=== PATIENT | female | born 1980 | race Caucasian/White ===

== ENCOUNTER 2016-09-06 09:03 | Inpatient (IN) | payer OTHER ==
[2016-09-05 15:19] VITALS: BMI 25.9
[2016-09-06] VITALS (40 sets, daily range): BP systolic 85–131; BP diastolic 44–72; PULSE 64–102; RESP 9–25; Ht 162.6 cm; Wt 67.3 kg
[~2016-09-06] VITALS: Ht 162.6 cm; Wt 67.3 kg
[2016-09-06] MEDS: D5-NS + KCL 20 MEQ 1,000 ML IV SCH ×3 (06:00→21:09)
[~2016-09-06 09:03] MED LIST: CEFAZOLIN 2 GM/50 ML (PMX) 50 ML IVPB SCH; Metronidazole 500 MG in NS 100 ML IVPB SCH
[2016-09-06] MEDS ORDERED: GELATIN SIZE 100 SPONGE ONE (10:08)
[2016-09-06] MEDS ORDERED: METHYLENE BLUE 1% 10 ML INJ ONE (10:08)
[2016-09-06] MEDS ORDERED: THROMBIN 5000 UNIT VIAL ONE (10:08)
[2016-09-06] MEDS ORDERED: VASOPRESSIN 20 UNITS INJ ONE (10:08)
[2016-09-06] MEDS ORDERED: GLYCOPYRROLATE 0.4 MG INJ ONE (11:04)
[2016-09-06] MEDS ORDERED: NEOSTIGMINE 3 MG/3 ML SYRINGE ONE (11:04)
[2016-09-06] MEDS ORDERED: SUCCINYLCHOLINE CHLORIDE 100 MG/5 ML SYG IV ONE (11:04)
[2016-09-06] MEDS ORDERED: ROCURONIUM 50 MG INJ ONE ×2 (11:04→12:45)
[2016-09-06] MEDS ORDERED: PROPOFOL 20 ML ONE (11:04)
[2016-09-06] MEDS ORDERED: LIDOCAINE 2% (SDV) 5 ML INJ ONE (11:04)
[2016-09-06] MEDS ORDERED: metroNIDAZOLE 500 MG/NS (PMX) 100 ML IVPB ONE (11:06)
[2016-09-06] MEDS ORDERED: CEFAZOLIN 1 GM INJ ONE (11:06)
[2016-09-06] MEDS ORDERED: morphine SULFATE/PF (10 MG/10 ML) INJ ONE (11:08)
[2016-09-06] MEDS ORDERED: METOCLOPRAMIDE 10 MG INJ ONE (11:08)
[2016-09-06] MEDS ORDERED: ONDANSETRON 4 MG INJ ONE (11:08)
[2016-09-06] MEDS ORDERED: KETOROLAC 30 MG INJ IV ONE (14:30)
[2016-09-06] MEDS ORDERED: MIDAZOLAM 1 MG/ML 2 ML INJ IV PRN (14:30)
[2016-09-06] MEDS ORDERED: ONDANSETRON 4 MG INJ IV PRN ×4 (14:30→21:00)
[2016-09-06] MEDS ORDERED: METOCLOPRAMIDE 10 MG INJ IV PRN (14:30)
[2016-09-06] MEDS ORDERED: FENTAnyl 50 MCG/ML VIAL IV PRN ×2 (14:30)
[2016-09-06] MEDS ORDERED: DIPHENHYDRAMINE 50 MG INJ IV PRN (14:30)
[2016-09-06] MEDS ORDERED: FENTAnyl 50 MCG/ML VIAL ONE (15:30)
[2016-09-06] MEDS ORDERED: EPHEDrine SULFATE 50 MG/5 ML SYG IV PRN (15:30)
[2016-09-06] MEDS ORDERED: morphine SULFATE/PF (10 MG/10 ML) INJ SPINAL ONE (15:30)
--- NOTE | 2016-09-06 15:36 | HPN ---
Date/Time of Note Date/Time of Note DATE: 09/06/16 TIME: 15:35 Interval H&P Admission Note Pt. seen H&P reviewed: No system changes MERLYN SANCHEZ MD September 06, 2016 15:36
[2016-09-06] MEDS ORDERED: CEFAZOLIN 1 GM in SOD CHLORIDE 0.9% 100 ML IVPB SCH (16:00)
[2016-09-06] MEDS: MEPERIDINE 50 MG INJ IV PRN ×2 (16:27→23:50)
[2016-09-06] MEDS: CEFAZOLIN 1 GM/50 ML (PMX) 50 ML IVPB SCH ×2 (16:30→23:45)
[2016-09-06] MEDS: POTASSIUM CHLORIDE 20 MEQ in LACTATED RINGER'S 990 ML IV SCH ×2 (16:30→21:55)
--- NOTE | 2016-09-06 18:41 | HP ---
DATE OF ADMISSION: 09/06/2016 HISTORY OF PRESENT ILLNESS: The patient is a 36-year-old female patient who was evaluated for intra -abdominal pelvic swelling and pelvic ____ pain that gets worse during period. Patient's CT of the abdomen and pelvis without contrast revealed anteverted uterus which enhanced heterogeneously. The anterior aspect of the uterus appears stuck to the anterior abdominal wall. Findings suggestive of. bicornuate uterus which is suboptimally evaluated by CT. The patient with history of and right oophorectomy in 2014 which according to the patient, was benign. The patient was evaluated b karly Melendez in surgical consultation and patient was brought to the hospital and underwent laparo scopic supracervical hysterectomy. Postoperatively, patient experienced significant nausea and pain and patient will be admitted for further evaluation and management. PAST MEDICAL HISTORY: As stated in H and P. The patient denies having any chronic conditions. PAST SURGICAL HISTORY: x2, status post right oophorectomy in March 2015. FAMILY HISTORY: Positive for colon cancer in patient's mother diagnosed at a young age. SOCIAL HISTORY: Patient lives at home with her family. The patient denies any alcohol use. Denies any tobacco use, denies any illicit drug use. ALLERGIES: PATIENT IS ALLERGIC TO ____, MORPHINE AND OXYCODONE. HOME MEDICATIONS: The patient denies having any routine medications at home. REVIEW OF SYSTEMS: A 12-point review of systems is negative unless was mentioned in the HPI. PHYSICAL ASSESSMENT GENERAL: Well-developed, well-nourished female, currently is awake, alert. VITAL SIGNS: Temperature is 97.6, pulse is 78, blood pressure is 96/49, respiratory rate 11, oxygen saturation is 92% on 2 liters nasal cannula. HEENT: Head is atraumatic, normocephalic. Pupils equal, round, reactive to light and accommodation . Oral mucosa is pink and moist. NECK: Supple, no cervical lymphadenopathy, no thyromegaly. CHEST: Lungs clear bilaterally. There is no rhonchi, wheezes, rales noted. CARDIOVASCULAR: Normal S1, S2. No murmurs, gallops, clicks, rubs noted. ABDOMEN: Round, soft, status post surgery with laparoscopic incisions intact with kandi. The ___ _ intact, covered with bandages. EXTREMITIES: There is no edema, clubbing, cyanosis. Pulses equal bilaterally 2+. SKIN: There is no rash, petechiae noted. NEUROLOGIC: Patient is awake, alert and oriented x3, no focal deficits noted. Motor strength 5/5 i n all extremities. ASSESSMENT AND PLAN: Pelvic mass, status post laparoscopic supracervical hysterectomy. We are goi ng to admit patient to continue postoperative antibiotics and IV fluids. Continue Toradol p.r.n. fo r pain and Zofran p.r.n. for nausea. Continue sequential compression device for deep venous thrombo sis prophylaxis and Pepcid for peptic ulcer disease prophylaxis. Continue to follow up surgical rec ommendation, incentive spirometer q. 1 hour while patient is awake, CBC and BMP tomorrow. Further r ecommendations based on clinical course. Plan of care discussed with Dr. Love. Dictated By: TERE VENTURA JUMP ROLL OPERATOR for KALLIE LOVE MD SR/NTS Conf#: [id number] DID#: [id number]
[2016-09-06] MEDS: FAMOTIDINE 20 MG INJ IV SCH (21:06)
[2016-09-07 05:48] LABS: ADD SCAN DIFF NO
[2016-09-07] MEDS: KETOROLAC 30 MG INJ IV PRN ×2 (05:49→17:10)
[2016-09-07 05:53] LABS: HEMATOCRIT 25.2 % (37.0-47.0); HEMOGLOBIN 8.1 g/dl (12.0-16.0); LYMPHOCYTES # 1.4 10^3/ul (0.8-2.9); MEAN CORPUSCULAR HGB CONC 32.1 g/dl (32.0-37.0); MEAN CORPUSCULAR VOLUME 93.3 fl (82.0-101.0); MEAN PLATELET VOLUME 12.2 fl (7.4-10.4); MONOCYTE # 0.8 10^3/ul (0.3-0.9); MONOCYTES % 9.4 % (0.0-11.0); NEUTROPHIL # 6.5 10^3/ul (1.6-7.5); NEUTROPHILS % 74.4 % (39.0-77.0); PLATELET COUNT 420 10^3/UL (140-415); RED CELL DISTRIBUTION WIDTH 13.4 % (11.5-14.5); WHITE BLOOD COUNT 8.8 10^3/ul (4.8-10.8)
[2016-09-07 06:19] LABS: INR 1.03; PROTIME 13.5 Sec (12.2-14.2); PT RATIO 1.1
[2016-09-07 06:26] LABS: ALBUMIN 2.7 g/dl (3.3-4.9)
[2016-09-07 06:27] LABS: POTASSIUM 3.8 mmol/L (3.5-5.1)
[2016-09-07 06:28] LABS: CREATININE 0.54 mg/dl (0.44-1.00)
[2016-09-07 06:29] LABS: ALBUMIN/GLOBULIN RATIO 0.87; BILIRUBIN,INDIRECT 0.7 mg/dl (0-1.1); BILIRUBIN,TOTAL 0.7 mg/dl (0.2-1.3); CALCIUM 7.8 mg/dl (8.4-10.2); TOTAL PROTEIN 5.8 g/dl (6.1-8.1)
[2016-09-07 06:30] LABS: MAGNESIUM 1.8 mg/dl (1.7-2.5)
[2016-09-07 07:57] VITALS: BP 94/51; RESP 20
[2016-09-07] MEDS: FAMOTIDINE 20 MG INJ IV SCH ×2 (08:23→20:40)
[2016-09-07] MEDS: CEFAZOLIN 1 GM/50 ML (PMX) 50 ML IVPB SCH (08:24)
[2016-09-07] MEDS: POTASSIUM CHLORIDE 20 MEQ in LACTATED RINGER'S 990 ML IV SCH ×2 (10:19→22:19)
[2016-09-07] MEDS: MEPERIDINE 50 MG INJ IV PRN ×2 (10:48→22:13)
--- NOTE | 2016-09-07 13:19 | PN ---
Date/Time of Note Date/Time of Note DATE: 09/07/16 TIME: 13:12 Assessment/Plan VTE Prophylaxis VTE Prophylaxis Intervention: SCD's Lines/Catheters IV Catheter Type (from Nrsg): Peripheral IV Assessment/Plan Chief Complaint/Hosp Course Fibroids, pelvic pain Problems: Assessment/Plan A- doing well but inadequate bowel fct to d/c and concern about bladder due to dissection P- transfuse due to need for O2 delivery to tissue and mobilize. Subjective 24 Hr Interval Summary Free Text/Dictation Less pain than preop RLQ but significant discomfort, no flatus and not OOB yet. Exam/Review of Systems Vital Signs Vitals Vital Signs Date Time Temp Pulse Resp B/P Pulse Ox O2 Delivery O2 Flow Rate FiO2 09/07/16 07:57 98.7 93 20 94/51 98 09/06/16 22:02 Nasal Cannula 2.0 Intake and Output 09/06/16 09/06/16 09/07/16 15:00 23:00 07:00 Intake Total 2980 ml 850 ml Output Total 800 ml 1200 ml Balance 2180 ml -350 ml Exam Respiratory: clear to auscultation, normal air movement Cardiovascular: nl pulses, regular rate and rhythm Gastrointestinal: non-tender, soft Extremities: normal pulses Results Result Diagram: 09/07/16 0501 09/07/16 0501 Results 24 hrs Laboratory Tests Test 09/07/16 05:01 White Blood Count 8.8 Red Blood Count 2.70 L Hemoglobin 8.1 L Hematocrit 25.2 L Mean Corpuscular Volume 93.3 Mean Corpuscular Hemoglobin 30.0 Mean Corpuscular Hemoglobin Concent 32.1 Red Cell Distribution Width 13.4 Platelet Count 420 H Mean Platelet Volume 12.2 H Neutrophils % 74.4 Lymphocytes % 16.0 Monocytes % 9.4 Eosinophils % 0.0 Basophils % 0.0 Nucleated Red Blood Cells % 0.0 Neutrophils # 6.5 Lymphocytes # 1.4 Monocytes # 0.8 Eosinophils # 0.0 Basophils # 0.0 Nucleated Red Blood Cells # 0.0 Prothrombin Time 13.5 Prothrombin Time Ratio 1.1 INR International Normalized Ratio 1.03 Sodium Level 137 Potassium Level 3.8 Chloride Level 106 Carbon Dioxide Level 24 Anion Gap 11 Blood Urea Nitrogen 5 L Creatinine 0.54 Glucose Level 93 Calcium Level 7.8 L Magnesium Level 1.8 Total Bilirubin 0.7 Direct Bilirubin 0.00 Indirect Bilirubin 0.7 Aspartate Amino Transf (AST/SGOT) 22 Alanine Aminotransferase (ALT/SGPT) 21 Alkaline Phosphatase 47 Total Protein 5.8 L Albumin 2.7 L Globulin 3.10 Albumin/Globulin Ratio 0.87 Medications Medications Current Medications Meperidine HCl (Demerol) 25 mg Q4H PRN IV PAIN LEVEL 1-5; Start 09/06/16 at 15: 00 Meperidine HCl (Demerol) 50 mg Q4H PRN IV PAIN LEVEL 6-10 Last administered on 09/07/16 10:48; Admin Dose 50 MG; Start 09/06/16 at 15:00 Ketorolac Tromethamine (Toradol) 30 mg Q6H PRN IV PAIN Last administered on 05:49; Admin Dose 30 MG; Start 09/06/16 at 16:00; Stop 09/09/16 at 15:59 Famotidine 20 mg 20 mg Q12 IV Last administered on 09/07/16 08:23; Admin Dose 20 MG; Start 09/06/16 at 21:00 Potassium Chloride/Lactated Ringer's (KCl/Lr) 1,000 ml @ 100 mls/hr Q10H IV Last administered on 09/07/16 10:19; Admin Dose 100 MLS/HR; Start 09/06/16 at 16 :30 Ondansetron HCl (Zofran Inj) 4 mg Q4H PRN IV NAUSEA AND/OR VOMITING Last administered on 09/06/16 23:40; Admin Dose 4 MG; Start 09/06/16 at 21:00 MERLYN SANCHEZ MD September 07, 2016 13:19
--- NOTE | 2016-09-07 13:38 | PN ---
Date/Time of Note Date/Time of Note DATE: 09/07/16 TIME: 13:33 Assessment/Plan VTE Prophylaxis VTE Prophylaxis Intervention: SCD's Lines/Catheters IV Catheter Type (from Nrsg): Peripheral IV Assessment/Plan Chief Complaint/Hosp Course ASSESSMENT AND PLAN: -Pelvic mass, pelvic pain, status post laparoscopic supracervical hysterectomy. Continue Toradol p.r.n. for pain and Zofran p.r.n. for nausea. Continue sequential compression device for deep venous thrombosis prophylaxis and Pepcid for peptic ulcer disease prophylaxis. Continue to follow up surgical recommendation, incentive spirometer q. 1 hour while patient is awake. OOB. -Anemia of blood loss, pending blood transfusion, continue to monitor H&H. Further recommendations based on clinical course. Plan of care discussed with Dr. Love. Problems: Subjective 24 Hr Interval Summary Free Text/Dictation Patient was able to get out of bed and ambulate today, still complains of abdominal pain when was sitting in a chair currently is back to bed, stated that pain is well controlled on current regimen, hypoactive bowel sounds, negative flatus, good urine output via Vasquez. Exam/Review of Systems Vital Signs Vitals Vital Signs Date Time Temp Pulse Resp B/P Pulse Ox O2 Delivery O2 Flow Rate FiO2 09/07/16 07:57 98.7 93 20 94/51 98 09/06/16 22:02 Nasal Cannula 2.0 Intake and Output 09/06/16 09/06/16 09/07/16 14:59 22:59 06:59 Intake Total 2980 ml 850 ml Output Total 800 ml 1200 ml Balance 2180 ml -350 ml Exam GENERAL: Well-developed, well-nourished female, currently is awake, alert. HEENT: Head is atraumatic, normocephalic. PERRLA. NECK: Supple, no cervical lymphadenopathy, no thyromegaly. CHEST: Lungs clear bilaterally. There is no rhonchi, wheezes, rales noted. CARDIOVASCULAR: Normal S1, S2. No murmurs, gallops, clicks, rubs noted. ABDOMEN: Round, soft, status post surgery with laparoscopic incisions intact. EXTREMITIES: There is no edema, clubbing, cyanosis. Pulses equal bilaterally 2 +. SKIN: There is no rash, petechiae noted. NEUROLOGIC: Patient is awake, alert and oriented x3, no focal deficits noted. Results Result Diagram: 09/07/16 0501 09/07/16 0501 Results 24 hrs Laboratory Tests Test 09/07/16 05:01 White Blood Count 8.8 Red Blood Count 2.70 L Hemoglobin 8.1 L Hematocrit 25.2 L Mean Corpuscular Volume 93.3 Mean Corpuscular Hemoglobin 30.0 Mean Corpuscular Hemoglobin Concent 32.1 Red Cell Distribution Width 13.4 Platelet Count 420 H Mean Platelet Volume 12.2 H Neutrophils % 74.4 Lymphocytes % 16.0 Monocytes % 9.4 Eosinophils % 0.0 Basophils % 0.0 Nucleated Red Blood Cells % 0.0 Neutrophils # 6.5 Lymphocytes # 1.4 Monocytes # 0.8 Eosinophils # 0.0 Basophils # 0.0 Nucleated Red Blood Cells # 0.0 Prothrombin Time 13.5 Prothrombin Time Ratio 1.1 INR International Normalized Ratio 1.03 Sodium Level 137 Potassium Level 3.8 Chloride Level 106 Carbon Dioxide Level 24 Anion Gap 11 Blood Urea Nitrogen 5 L Creatinine 0.54 Glucose Level 93 Calcium Level 7.8 L Magnesium Level 1.8 Total Bilirubin 0.7 Direct Bilirubin 0.00 Indirect Bilirubin 0.7 Aspartate Amino Transf (AST/SGOT) 22 Alanine Aminotransferase (ALT/SGPT) 21 Alkaline Phosphatase 47 Total Protein 5.8 L Albumin 2.7 L Globulin 3.10 Albumin/Globulin Ratio 0.87 Medications Medications Current Medications Meperidine HCl (Demerol) 25 mg Q4H PRN IV PAIN LEVEL 1-5; Start 09/06/16 at 15: 00 Meperidine HCl (Demerol) 50 mg Q4H PRN IV PAIN LEVEL 6-10 Last administered on 09/07/16 10:48; Admin Dose 50 MG; Start 09/06/16 at 15:00 Ketorolac Tromethamine (Toradol) 30 mg Q6H PRN IV PAIN Last administered on 05:49; Admin Dose 30 MG; Start 09/06/16 at 16:00; Stop 09/09/16 at 15:59 Famotidine 20 mg 20 mg Q12 IV Last administered on 09/07/16 08:23; Admin Dose 20 MG; Start 09/06/16 at 21:00 Potassium Chloride/Lactated Ringer's (KCl/Lr) 1,000 ml @ 70 mls/hr [id number] IV Last administered on 09/07/16 10:19; Admin Dose 100 MLS/HR; Start 09/06/16 at 16 :30 Ondansetron HCl (Zofran Inj) 4 mg Q4H PRN IV NAUSEA AND/OR VOMITING Last administered on 09/06/16 23:40; Admin Dose 4 MG; Start 09/06/16 at 21:00 TERE VENTURA September 07, 2016 13:38
[2016-09-07 16:39] LABS: ADD SCAN DIFF NO
[2016-09-07 16:40] LABS: BASOPHILS % 0.2 % (0.0-2.0); EOSINOPHILS # 0.1 10^3/ul (0.0-0.5); EOSINOPHILS % 0.8 % (0.0-7.0); HEMATOCRIT 29.1 % (37.0-47.0); HEMOGLOBIN 9.6 g/dl (12.0-16.0); LYMPHOCYTES # 2.4 10^3/ul (0.8-2.9); LYMPHOCYTES % 28.7 % (15.0-51.0); MEAN CORPUSCULAR HEMOGLOBIN 30.6 pg (29.0-33.0); MEAN CORPUSCULAR VOLUME 92.7 fl (82.0-101.0); MEAN PLATELET VOLUME 11.4 fl (7.4-10.4); MONOCYTE # 0.8 10^3/ul (0.3-0.9); MONOCYTES % 9.1 % (0.0-11.0); NEUTROPHIL # 5.1 10^3/ul (1.6-7.5); PLATELET COUNT 184 10^3/UL (140-415); RED BLOOD COUNT 3.14 10^6/ul (4.20-5.40); RED CELL DISTRIBUTION WIDTH 13.4 % (11.5-14.5); WHITE BLOOD COUNT 8.4 10^3/ul (4.8-10.8)
[2016-09-07 19:35] VITALS: BP 108/56; RESP 18
[2016-09-08] MEDS: KETOROLAC 30 MG INJ IV PRN (01:42)
[2016-09-08 05:32] LABS: ADD SCAN DIFF NO
[2016-09-08 05:40] LABS: BASOPHILS % 0.1 % (0.0-2.0); EOSINOPHILS # 0.1 10^3/ul (0.0-0.5); EOSINOPHILS % 1.6 % (0.0-7.0); HEMATOCRIT 28.4 % (37.0-47.0); HEMOGLOBIN 9.3 g/dl (12.0-16.0); LYMPHOCYTES # 2.3 10^3/ul (0.8-2.9); LYMPHOCYTES % 33.1 % (15.0-51.0); MEAN CORPUSCULAR HEMOGLOBIN 30.8 pg (29.0-33.0); MEAN CORPUSCULAR HGB CONC 32.7 g/dl (32.0-37.0); MEAN PLATELET VOLUME 11.6 fl (7.4-10.4); MONOCYTE # 0.7 10^3/ul (0.3-0.9); MONOCYTES % 9.7 % (0.0-11.0); NEUTROPHIL # 3.9 10^3/ul (1.6-7.5); NEUTROPHILS % 55.2 % (39.0-77.0); PLATELET COUNT 173 10^3/UL (140-415); RED BLOOD COUNT 3.02 10^6/ul (4.20-5.40); RED CELL DISTRIBUTION WIDTH 13.5 % (11.5-14.5)
[2016-09-08 06:45] LABS: ALBUMIN 2.8 g/dl (3.3-4.9); ALBUMIN/GLOBULIN RATIO 0.93; BILIRUBIN,INDIRECT 0.6 mg/dl (0-1.1); BILIRUBIN,TOTAL 0.6 mg/dl (0.2-1.3); CALCIUM 7.5 mg/dl (8.4-10.2); CREATININE 0.61 mg/dl (0.44-1.00); TOTAL PROTEIN 5.8 g/dl (6.1-8.1)
[2016-09-08 07:20] VITALS: BP 104/61; PULSE 82; RESP 18
[2016-09-08] MEDS: FAMOTIDINE 20 MG INJ IV SCH ×2 (08:44→20:46)
[2016-09-08] MEDS: MEPERIDINE 25 MG INJ IV PRN ×3 (10:18→22:36)
--- NOTE | 2016-09-08 12:41 | PN ---
Date/Time of Note Date/Time of Note DATE: 09/08/16 TIME: 12:37 Assessment/Plan VTE Prophylaxis VTE Prophylaxis Intervention: SCD's Lines/Catheters IV Catheter Type (from Nrs): Peripheral IV Urinary Cath still in place: No Assessment/Plan Chief Complaint/Hosp Course Fibroids, pelvic pain Problems: Assessment/Plan A- clinically improved, héctor diet an wound clean. P- d/c after héctor lunch Subjective 24 Hr Interval Summary Free Text/Dictation Feels better than earlier and yesterday. + flatus and tolerating diet and ambulating Exam/Review of Systems Vital Signs Vitals Vital Signs Date Time Temp Pulse Resp B/P Pulse Ox O2 Delivery O2 Flow Rate FiO2 09/08/16 07:20 98.2 82 18 104/61 97 Room Air 09/06/16 22:02 2.0 Intake and Output 09/07/16 09/07/16 09/08/16 15:00 23:00 07:00 Intake Total 700 ml 1960 ml 740 ml Output Total 2450 ml 1820 ml Balance 700 ml -490 ml -1080 ml Exam Respiratory: normal air movement Cardiovascular: nl pulses, regular rate and rhythm Musculoskeletal: nl extremities to inspection Extremities: normal pulses Results Result Diagram: 09/08/16 0515 09/08/16 0515 Results 24 hrs Laboratory Tests Test 09/07/16 16:35 09/08/16 05:15 White Blood Count 8.4 7.0 Red Blood Count 3.14 L 3.02 L Hemoglobin 9.6 L 9.3 L Hematocrit 29.1 L 28.4 L Mean Corpuscular Volume 92.7 94.0 Mean Corpuscular Hemoglobin 30.6 30.8 Mean Corpuscular Hemoglobin Concent 33.0 32.7 Red Cell Distribution Width 13.4 13.5 Platelet Count 184 # 173 Mean Platelet Volume 11.4 H 11.6 H Neutrophils % 61.0 55.2 Lymphocytes % 28.7 33.1 Monocytes % 9.1 9.7 Eosinophils % 0.8 1.6 Basophils % 0.2 0.1 Nucleated Red Blood Cells % 0.0 0.0 Neutrophils # 5.1 3.9 Lymphocytes # 2.4 2.3 Monocytes # 0.8 0.7 Eosinophils # 0.1 0.1 Basophils # 0.0 0.0 Nucleated Red Blood Cells # 0.0 0.0 Sodium Level 136 Potassium Level 4.0 Chloride Level 109 Carbon Dioxide Level 24 Anion Gap 7 L Blood Urea Nitrogen 5 L Creatinine 0.61 Glucose Level 87 Calcium Level 7.5 L Total Bilirubin 0.6 Direct Bilirubin 0.00 Indirect Bilirubin 0.6 Aspartate Amino Transf (AST/SGOT) 24 Alanine Aminotransferase (ALT/SGPT) 24 Alkaline Phosphatase 48 Total Protein 5.8 L Albumin 2.8 L Globulin 3.00 Albumin/Globulin Ratio 0.93 Medications Medications Current Medications Meperidine HCl (Demerol) 25 mg Q4H PRN IV PAIN LEVEL 1-5 Last administered on 10:18; Admin Dose 25 MG; Start 09/06/16 at 15:00 Famotidine 20 mg 20 mg Q12 IV Last administered on 09/08/16 08:44; Admin Dose 20 MG; Start 09/06/16 at 21:00 Potassium Chloride/Lactated Ringer's (KCl/Lr) 1,000 ml @ 40 mls/hr Q24H IV Last administered on 09/07/16 22:19; Admin Dose 70 MLS/HR; Start 09/06/16 at 16: 30 Ondansetron HCl (Zofran Inj) 4 mg Q4H PRN IV NAUSEA AND/OR VOMITING Last administered on 09/06/16 23:40; Admin Dose 4 MG; Start 09/06/16 at 21:00 MERLYN SANCHEZ MD September 08, 2016 12:40
[2016-09-08] MEDS: POTASSIUM CHLORIDE 20 MEQ in LACTATED RINGER'S 990 ML IV SCH ×2 (14:09→22:59)
[2016-09-08] MEDS: DOCUSATE SODIUM 100 MG CAP PO SCH ×2 (14:45→20:46)
[2016-09-08 20:09] VITALS: BP 108/56; RESP 18
--- NOTE | 2016-09-08 20:11 | OPR ---
Date/Time of Note Date/Time of Note DATE: 09/08/16 TIME: 20:11 Operative Report Free Text/Dictation OPERATIVE REPORT [facility] Name: Jocelynn Montano Medical Date: 09/06/16 Preoperative Diagnosis: 1- Pelvic mass probable fibroids 2- Possible mesentery / pericolic mass per CT 3- Severe chronic pelvic pain Postoperative Diagnosis: 1- Left broad ligament myoma 2- Ureteral stricture 3- Dense anterior abdominal adhesions Procedures: 1- Laparoscopic subtotal hysterectomy 2- Bilateral ureteral dissection with repositioning 3- Retroperitoneal uterine artery ligation 4- Partial presacral neurectomy 5- Extensive lysis of adhesions Surgeon: Dr. Sanchez Rubber Tester: SOLITARIO Zhu Anesthesia: General with regional Indications for surgery The patient is a 36-year old s/p laparoscopic RSO for a large benign mass with chronic pain as well as a suggestive of pericolic cysts per CT scan. The markers were within normal limits, and most pain was right sided despite the RSO. She also had severe dysmenorrha and menorrhagia. After considering all options with risks and benefits a Name: Jocelynn Montano Medical laparoscopy with supracervical hysterectomy and possible USO, possible ureteral dissection as needed with repositioning and possible presacral neurctomy was selected after considering all options with risks and benefits. Findings and Summary The patient was laparoscoped and found to have a large broad ligament fibroid on the left that was partly obstructing the ureter and due to the size distorting the anatomy retroperitoneally on the right as well with right sidewall adhesions from prior surgery and the uterus densely adherent to the anterior abdomen and possibly bladder. Therefore it was necessary to open the retroperitoneum bilaterally and dissect and reposition the ureters bilaterally for the purposes of access to the lower uterine segment and the vasculature. Due to additional anatomic distortion by the fibroid and hypervascualrity as well the uterine arteries were clipped bilaterally immediately distal to the branching of the hypogastrics, as anatomy precluding access to the lower uterine segment vessels mandated this. Due to scar tissue and right side pain a presacral neurectomy was completed on the right. The laparoscopic supracervical hysterectomy was then completed with morcellation thru a minilaparotomy without incident. Procedure: After being prepped and draped in the usual manner an EEA sizer and pneumo- occluder was inserted vaginally. A 5-millimeter trocar was then placed well cephlad to the umbilicus without incident after which a 5-millimeter trocar was placed periumbilically without incident. Subsequently, we insufflated and placed two 5 millimeter trocars laterally and a 12 millimeter trocar suprapubically. At this time the uterus was noted to be enlarged with fibroids an densely adherent to the anterior abdomen and possibly bladder, with some anterior adhesions being lysed with sharp dissection and the Omni as well as Thunderbeat. Subsequently we explored and noted the left adnexia to be grossly within normal limits in appearance but there was a large solid mass is consistent with a left broad ligament myoma involving the retroperitoneum Name: Jocelynn Montano [facility] that was that was partly obstructing the left ureter and due to the size distorting the anatomy retroperitoneally on the right as well, with additional fibroids and the uterus further densely adherent to the anterior abdomen and the right sidewall scarred and lower uterine segment anatomy precluding access to the lower uterine segment vessels. Initially the left round ligament was transected with the Gyrus biopolar Cutting Forceps and the retroperitoneal spaced opened parallel to the IP ligament and laterally with the same devise and Omni. The ureter was identified and because of the large retroperitoneal mass/myoma required a specific dissection and repositioning. The ureter was bluntly dissected away from the broad ligament myoma and others with an Omni, and carefully repositioned lateral to the broad ligament and the myoma. Because of some oozing and because the anatomy of the retroperitoneal mass resulted in displacement of the vessels laterally and the anatomy precluding access to the lower uterine segment vessels it mandated that we isolate the uterine artery and vein adjacent to the ureter that was lateralized to the level of the hypogastric artery using the endo-dissector and Omni for hemostasis with the previously dissected ureter visualized. Therefore in this case the uterine artery was hemoclipped immediately distal to the branching of the hypogastric and at the bifurcation of the hypogastric, proximal to the branching of the uterine and obliterated umbilical; salvaging both observed superior and inferior vesicle while controlling the entire uterine with associated collateral branches. At this time the left triple pedicle was desiccated and transected with the Thunderbeat. Subsequently, the right round ligament was transected with a Gyrus bipolar cutting forceps laterally and the retroperitoneum opened parallel to the remnant of infundibulo-pelvic (IP) ligament with a Gyrus bipolar cutting forceps and Omni. The ureteral dissection with repositioning was undertaken. The ureter was dissected away from the peritoneum with adjacent uterus and repositioned with care using the endo-dissector and Gyrus bipolar cutting forceps bluntly, again with the dissection being somewhat required due to some distortion of the retroperitoneum by the large aforementioned mass from the contralateral side and scar tissue . This process was carried out throughout the ureteral length in the pelvis and it peristalsed normally once Name: Jocelynn Montano Medical repositioned. Again, because of fibroids and scar tissue with anatomy precluding access to the lower uterine segment vessels, it mandated that we isolate the uterine artery and vein adjacent to the ureter that was lateralized to the level of the hypogastric artery using the endo-dissector and Omni for hemostasis with the previously dissected ureter visualized. Therefore in this case the uterine artery was hemoclipped immediately distal to the branching of the hypogastric and at the bifurcation of the hypogastric, proximal to the branching of the uterine and obliterated umbilical; salvaging both observed superior and inferior vesicle while controlling the entire uterine with associated collateral branches. At this time the remnant of right triple pedicle / IP ligament was desiccated and transected with the Omni and Thunderbeat. At this time a corkscrew was placed in the aforementioned uterine fibroids to manipulate further dissect the uterus from the anterior abdomen and bladder with the Omni and sharp dissection and the integ the uterus allowing development or the bladder flap uneventfully with the Gyrus Cutting Forceps and blunt dissection and the integrity of the bladder was confirmed by instillation of methylene blue. Subsequently with exposure the right ureter was further dissected and mobilized, the sigmoid colon and mesentery mobilized laterally and with the vasculature visualized a presacral space was developed with blunt dissection and the Omni and with the Thunderbeat a right sided presacral neurectomy was completed. The right uterine artery was transected with a Thunderbeat perpendicular to the distal lower uterine segment and the Cardinal ligament and utero-sacral ligament were both transected with a Thunderbeat parallel to the lower uterine segment and cervix via the contralateral trocar site. An identical series of steps were taken on the left side. Hence, the uterus was removed from the cervix with the Thunderbeat and hemostasis confirmed. The cervix and the endocervical canal were thoroughly ablated with the Omni. Then small left adnexal cyst was removed and was then and removed with a negative frozen section was obtained consistent with a functional cyst thru the 12-millimeter trocar, and the specimen was then removed with the uterus by pacing in a sac and using a minilaparotomy. The 12- millimeter trocar site was minimally extended to 3-4 cm midline to a minilaparotomy with sharp dissection Name: Jocelynn Montano Medical and an electrocautery and uterus in a 15-millimeter was then removed with morcellation using Kam clamps and a scalpel for morcellation, with all tissue accounted for. The incision was partly closed with interrupted 0- Vicryl suture , after which the 12-millimeter trocar was reinserted. After irrigating and assuring hemostasis the 12 millimeter trocar was removed and the fascia was closed with 0-vicryl using an endo-close devise and subcutaneous 3-0 Vicryl suture . The gas was removed and the skin of all sites then closed with 4-0 Monocryl suture. The EBL was 100 cc and the patient tolerated the procedure well and left the OR in good condition. Merlyn Sanchez M.D. MERLYN SANCHEZ MD September 08, 2016 20:11
--- NOTE | 2016-09-08 23:21 | PN ---
DATE: 09/08/2016 SUBJECTIVE: As per nurse, the patient during lunchtime had difficulty in tolerating diet, and the p atient had suboptimal p.o. intake. No reported chest pain or shortness of breath. No fever or chil ls. PHYSICAL EXAMINATION: GENERAL: The patient is conscious, awake, alert. VITAL SIGNS: Temperature 98.2, pulse 87, respirations 18, blood pressure 108/56, O2 saturation 99% on room air. HEENT: No eye discharge or redness. Oropharynx clear. NECK: No mass. CHEST: Fairly clear. CARDIOVASCULAR: S1, S2 normal. No murmur. ABDOMEN: Soft, nondistended. Bowel sounds plus. EXTREMITIES: No leg edema. NEUROLOGIC: The patient is awake, alert with no gross focal deficit. LABORATORY DATA: Done this morning, WBC 7, hemoglobin 9.3, platelets 173. Sodium 138, potassium 4, BUN 5, creatinine 0.7. Glucose 87. Liver enzymes normal. IMPRESSION: Left broad ligament myoma and ureteral stricture, status post laparoscopic subtotal gas trectomy and bilateral ureteral dissection with repositioning and extensive lysis of adhesions. The patient will be continued on mechanical soft diet, which was started this morning. We will monitor her until tomorrow and if the patient is able to tolerate diet well, she will be discharged home. We will continue IV Pepcid for now. Will continue IV fluids. SCDs for deep venous thrombosis proph ylaxis. PET results reviewed. No malignancy noted. Dictated By: KALLIE CASTRO/LATASHA Conf#: [id number] DID#: [id number]
[2016-09-09 07:24] VITALS: BP 99/55; PULSE 78; RESP 16
[2016-09-09] MEDS: FAMOTIDINE 20 MG INJ IV SCH (08:29)
[2016-09-09] MEDS: DOCUSATE SODIUM 100 MG CAP PO SCH (08:29)
[2016-09-09] MEDS: MEPERIDINE 25 MG INJ IV PRN (08:30)
[2016-09-09] MEDS ORDERED: HYDR-906 PO (13:32)
--- NOTE | 2016-09-11 23:29 | DS ---
DATE OF ADMISSION: 09/08/2016 DATE OF DISCHARGE: 09/09/2016 FINAL DIAGNOSES: 1. 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 2. Anemia of blood loss, status post transfusion. BRIEF HISTORY: The patient is a 36-year-old female with complaints of pelvic pain and pelvic swelli ng. The patient was evaluated by Dr. Melendez in surgical consultation. The patient was brought to the hospital and underwent laparoscopic subtotal hysterectomy. Postoperatively, the patient experi enced significant pain and was admitted for further evaluation and management. HOSPITAL COURSE: THE PATIENT HAS AN ALLERGY TO TYLENOL AND MORPHINE AND OXYCODONE; however, stated that she took Garrison before with no problem. The patient was given Toradol IV in the immediate posto perative period. The patient's condition gradually resolved. The patient's electrolytes and hemogl obin were closely monitored. The patient was discharged after clearance from surgery. The patient biopsy of the uterus was negative for any malignancy, atypia, or endometrial hyperplasia and biopsy of the left ovary was also negative for any malignancy or atypia. CONDITION ON DISCHARGE: Hemodynamically stable. ACTIVITIES: As patient tolerates. No lifting more than 25 pounds for 6 weeks. DIET: Regular diet. DISCHARGE MEDICATIONS: The patient is being prescription for Garrison p.r.n. for pain. DISCHARGE INSTRUCTIONS: The patient was instructed to follow up with Dr. Melendez in postoperative appointment in 1 week. Interdisciplinary plan of care was established for this patient. Plan of care was discussed with Dr Sully Arcos. Dictated By: [facility] for KALLIE ARCOS MD SR/NTS Conf#: [id number] DID#: [id number] CC: MERLYN MELENDEZ MD;*EndCC*
== END 2016-09-09 18:30 | disposition home or self-care (01) | DRG 743 ==
LOC: REC 09:03 → INTOOBSV 09:03 → MS2 20:00 → OBSVTOIN 09-08 14:13
PROC: 01B Peripheral Nervous System, Excision (ICD-10-PCS; principal; 2016-09-08)
PROC: 0UT94ZZ Resection of Uterus, Percutaneous Endoscopic Approach (ICD-10-PCS; 2016-09-08)
PROC: 0TS84ZZ Reposition Bilateral Ureters, Percutaneous Endoscopic Approach (ICD-10-PCS; 2016-09-08)
DX: N92.0 Excessive and frequent menstruation with regular cycle (principal); N13.5 Crossing vessel and stricture of ureter without hydronephrosis; G89.29 Other chronic pain; N94.6 Dysmenorrhea, unspecified; R10.2 Pelvic and perineal pain; D25.9 Leiomyoma of uterus, unspecified; D28.2 Benign neoplasm of uterine tubes and ligaments
CPT/HCPCS: 80053; 83735; 84703; 85025; 85610; 86850; 86900; 86901; 86920; 88304; 88305; 88331; G0378; J0330; J0690; J1885; J2175; J2274; J2405; J2710; J2765; J3010; J3480; J7120

== ENCOUNTER 2016-10-17 01:16 | Emergency (ER) | payer SELFPAY ==
[~2016-10-17] VITALS: Ht 162.6 cm; Wt 68.5 kg
[~2016-10-17 01:16] MED LIST changes: -CEFAZOLIN 2 GM/50 ML (PMX) 50 ML IVPB SCH; +HYDR-906 PO; -Metronidazole 500 MG in NS 100 ML IVPB SCH
[2016-10-17 01:19] VITALS: Ht 162.6 cm; Wt 68.5 kg
== END 2016-10-17 05:59 | disposition left against medical advice (07) ==
LOC: FTE 01:16
DX: Z53.21 Procedure and treatment not carried out due to patient leaving prior to being seen by health care provider (principal)